=== PATIENT | female | born 2000 | race Caucasian/White ===

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

== ENCOUNTER 2020-06-25 15:12 | Emergency (ER) | payer OTHER, SELFPAY ==
[~2020-06-25] VITALS: Ht 175.3 cm; Wt 77.1 kg
[2020-06-25 15:25] VITALS: BP 116/68
--- NOTE | 2020-06-25 15:45 | NUR ---
C/O GRIFFIN,SUBJECTIVE FEVER, RUNNY NOSE,SORE THROAT, LOSS OF TASTE/SMELL X 2 DAYS. PMH: DENIES
--- NOTE | 2020-06-25 16:30 | NUR ---
covid swab done.
[2020-06-25 16:40] VITALS: BP 116/68
== END 2020-06-25 16:43 | disposition home or self-care (01) ==
LOC: MED 15:12
DX: R43.8 Other disturbances of smell and taste (principal); Z20.828 Contact with and (suspected) exposure to other viral communicable diseases
CPT/HCPCS: 99283; U0003

== ENCOUNTER 2020-11-15 01:00 | Emergency (ER) | payer OTHER, SELFPAY ==
[~2020-11-15] VITALS: Ht 175.3 cm; Wt 76.4 kg
[2020-11-15 01:04] VITALS: BP 142/69
[2020-11-15 01:29] LABS: APPEARANCE,URINE CLOUDY (CLEAR); BILIRUBIN,URINE NEGATIVE (NEGATIVE); BLOOD, URINE 3+ (NEGATIVE); COLOR,URINE RED (YELLOW); LEUKOCYTE ESTERASE ,URINE NEGATIVE (NEGATIVE); NITRITE, URINE NEGATIVE (NEGATIVE); UGLUCOSE NEGATIVE (NEGATIVE)
[2020-11-15 01:33] LABS: RBC,URINE TOO NUMEROUS TO COUN /HPF (0-5)
[2020-11-15 01:34] LABS: WBC,URINE 0-5 /HPF (0-5)
[2020-11-15] MEDS ORDERED: KETOROLAC 30 MG/ML VIAL IM ONE (01:35)
[2020-11-15] MEDS ORDERED: ONDANSETRON 4 MG ODT PO ONE (01:35)
[2020-11-15 01:55] LABS: BASOPHILS % (AUTO) 0.4 % (0.0-2.0); EOSINOPHILS # (AUTO) 0.1 K/uL (0-0.4); EOSINOPHILS % (AUTO) 1.4 % (0.0-4.0); HEMATOCRIT 39.2 % (36-48); LYMPHOCYTES # (AUTO) 2.4 K/uL (2.5-16.5); LYMPHOCYTES % (AUTO) 25.2 % (20.5-51.1); MEAN CORPUSCULAR HEMOGLOBIN 31 pg (27-31); MEAN CORPUSCULAR HGB CONC 33 g/dL (33-37); MEAN CORPUSCULAR VOLUME 94.3 fL (80-94); MONOCYTES # (AUTO) 0.8 K/uL (0.8-1.0); NEUTROPHILS # (AUTO) 6.2 K/uL (1.8-7.7); PLATELET COUNT (AUTO) 299 K/uL (140-450); RED BLOOD CELL COUNT(AUTO) 4.16 MIL/uL (4.20-5.40); RED CELL DISTRIBUTION WIDTH 13.1 % (11.6-13.7); WHITE BLOOD COUNT (AUTO) 9.5 K/uL (4.5-11.0)
[2020-11-15 02:11] LABS: ALBUMIN 3.7 g/dL (3.4-5.0); ANION GAP 11.3 (8-16); CARBON DIOXIDE 29.5 mmol/L (21-32); CREATININE 0.8 mg/dL (0.6-1.3); POTASSIUM 3.8 mmol/L (3.5-5.1); TOTAL BILIRUBIN 0.4 mg/dL (0.0-1.0)
[2020-11-15] MEDS ORDERED: MIRABULK PO (02:53)
[2020-11-15 03:04] VITALS: BP 142/69
== END 2020-11-15 03:04 | disposition home or self-care (01) ==
LOC: MED 01:00
DX: R10.30 Lower abdominal pain, unspecified (principal); M54.5 Low back pain
CPT/HCPCS: 36415; 74176; 80053; 81001; 81025; 85025; 87086; 96372; 99284; J1885; Q0162

== ENCOUNTER 2021-02-04 23:37 | Emergency (ER) | payer OTHER ==
[~2021-02-04] VITALS: Ht 175.3 cm; Wt 73.0 kg
[~2021-02-04 23:37] MED LIST changes: +MIRABULK PO
[2021-02-04 23:54] VITALS: BP 120/61
--- NOTE | 2021-02-05 01:15 | NUR ---
CALLED PATIENT BACK WITH NO RESPONSE.
--- NOTE | 2021-02-05 01:20 | NUR ---
CALLED PATIENT BACK WITH NO RESPONSE.
--- NOTE | 2021-02-05 01:25 | NUR ---
PATIENT LEFT WITHOUT BEING SEEN BY DR. BORGES. NO FURTHER CARE PROVIDED FOR PATIENT.
== END 2021-02-05 01:15 | disposition left against medical advice (07) ==
LOC: MED 23:37
DX: S81.831D Puncture wound without foreign body, right lower leg, subsequent encounter (principal); Z53.21 Procedure and treatment not carried out due to patient leaving prior to being seen by health care provider; X58.XXXD Exposure to other specified factors, subsequent encounter

== ENCOUNTER 2021-02-05 14:34 | Emergency (ER) | payer OTHER ==
[~2021-02-05] VITALS: Ht 165.1 cm; Wt 77.6 kg
[2021-02-05 14:46] VITALS: BP 116/67
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
[2021-02-05] MEDS ORDERED: MORPHINE SULFATE 2 MG/ML SYR IVP ONE (15:20)
[2021-02-05] MEDS ORDERED: ONDANSETRON 4 MG/2 ML VIAL IVP ONE (15:20)
--- NOTE | 2021-02-05 15:40 | NUR ---
CONSENT SIGNED FOR IV CONTRAST BY PT AFTER VERBALIZED UNDERSTANDING
--- NOTE | 2021-02-05 15:45 | NUR ---
ERMD MADE AWARE OF PT URINE INDICATES AND THAT MEDICATIONS WILL BE HELD, PER ERMD OK TO HOLD CONTRAST EXAM
[2021-02-05 16:06] LABS: BASOPHILS % (AUTO) 0.4 % (0.0-2.0); EOSINOPHILS % (AUTO) 0.7 % (0.0-4.0); HEMATOCRIT 33.2 % (36-48); HEMOGLOBIN 11.4 g/dL (12.0-16.0); LYMPHOCYTES # (AUTO) 1.1 K/uL (2.5-16.5); LYMPHOCYTES % (AUTO) 26.5 % (20.5-51.1); MEAN CORPUSCULAR HEMOGLOBIN 31 pg (27-31); MEAN CORPUSCULAR HGB CONC 35 g/dL (33-37); MEAN CORPUSCULAR VOLUME 90.7 fL (80-94); MONOCYTES # (AUTO) 0.5 K/uL (0.8-1.0); MONOCYTES % (AUTO) 11.4 % (1.7-9.3); NEUTROPHILS # (AUTO) 2.6 K/uL (1.8-7.7); PLATELET COUNT (AUTO) 249 K/uL (140-450); RED BLOOD CELL COUNT(AUTO) 3.65 MIL/uL (4.20-5.40); RED CELL DISTRIBUTION WIDTH 13.9 % (11.6-13.7); WHITE BLOOD COUNT (AUTO) 4.2 K/uL (4.5-11.0)
[2021-02-05 16:31] LABS: ALBUMIN 3.9 g/dL (3.4-5.0); ANION GAP 12.2 (8-16); CARBON DIOXIDE 24.1 mmol/L (21-32); CREATININE 0.6 mg/dL (0.6-1.3); POTASSIUM 3.3 mmol/L (3.5-5.1); TOTAL BILIRUBIN 0.4 mg/dL (0.0-1.0)
--- NOTE | 2021-02-05 17:04 | NUR ---
PT ALERT AND AWAKE, BREATHING EVEN AND UNLABORED. NO DISTRESS NOTED. ALL NEEDS MET AT THIS TIME WILL CONTINUE TO MONITOR
[2021-02-05] MEDS ORDERED: ACETAMINOPHEN EXTRA STRENGTH 500 MG TAB PO ONE (17:10)
--- NOTE | 2021-02-05 17:17 | NUR ---
US AT BEDSIDE
[2021-02-05 17:26] LABS: APPEARANCE,URINE CLEAR (CLEAR); BLOOD, URINE NEGATIVE (NEGATIVE); COLOR,URINE AMBER (YELLOW); UGLUCOSE NEGATIVE (NEGATIVE)
[2021-02-05 17:27] LABS: BILIRUBIN,URINE NEGATIVE (NEGATIVE); LEUKOCYTE ESTERASE ,URINE NEGATIVE (NEGATIVE); NITRITE, URINE NEGATIVE (NEGATIVE)
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
[2021-02-05 19:01] VITALS: BP 121/65
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
== END 2021-02-05 18:55 | disposition home or self-care (01) ==
LOC: MED 14:34
DX: O9A.211 Injury, poisoning and certain other consequences of external causes complicating pregnancy, first trimester (principal); S81.831A Puncture wound without foreign body, right lower leg, initial encounter; F12.90 Cannabis use, unspecified, uncomplicated; Z3A.01 Less than 8 weeks gestation of pregnancy; Z79.899 Other long term (current) drug therapy; W32.0XXA Accidental handgun discharge, initial encounter; Y93.89 Activity, other specified; Y92.810 Car as the place of occurrence of the external cause; Y99.8 Other external cause status
CPT/HCPCS: 36415; 76801; 80053; 81003; 81025; 84702; 85025; 99284; J2270; J2405

== ENCOUNTER 2021-05-30 23:05 | Observation (INO) | payer OTHER, SELFPAY ==
[~2021-05-30] VITALS: Ht 177.8 cm; Wt 77.1 kg
[2021-05-31 01:07] VITALS: BP 102/54
== END 2021-05-31 00:45 | disposition home or self-care (01) ==
LOC: MFCC 23:05
PROVIDERS: ADMIT Obstetrics & Gynecology; ATTEND Obstetrics & Gynecology
DX: O26.892 Other specified pregnancy related conditions, second trimester (principal); R10.30 Lower abdominal pain, unspecified; Z3A.23 23 weeks gestation of pregnancy
CPT/HCPCS: 59025; G0378

== ENCOUNTER 2021-12-23 07:26 | Emergency (ER) | payer OTHER ==
[~2021-12-23] VITALS: Ht 177.8 cm; Wt 86.2 kg
[2021-12-23 07:37] VITALS: BP 122/80
--- NOTE | 2021-12-23 08:32 | NUR ---
21 y/o female, pt presents to ed with c/o right heel pain, pt states a "bubble of fluid" formed yesterday and she had popped it last night and this morning. pt states she is having pain and sensitivity in area, area appears white and no mass is formed at site. site appears moist. denies nausea, vomiting, diarrhea. skin is pink/warm/dry. a&o x4 with even and steady gait. pt denies any fever, cp, sob, or cough at this time. pt states pain is 3/10 at this time. vss. patient positioned for comfort. hob elevated. bed down. ermd made aware of pt. pmh: denies nka med: dneies
[2021-12-23] MEDS ORDERED: BACI-105 TP (08:34)
[2021-12-23 08:53] VITALS: BP 122/80
--- NOTE | 2021-12-23 09:07 | NUR ---
Patient discharged with v/s stable. Written and verbal after care instructions given and explained. Patient alert, oriented and verbalized understanding of instructions. Ambulatory with steady gait. All questions addressed prior to discharge. ID band removed. Patient advised to follow up with PMD. Rx of bacitracin (sent) given. Patient educated on indication of medication including possible reaction and side effects. Opportunity to ask questions provided and answered. work note copy given
== END 2021-12-23 09:07 | disposition home or self-care (01) ==
LOC: MED 07:26
DX: S90.822A Blister (nonthermal), left foot, initial encounter (principal); Z79.2 Long term (current) use of antibiotics; X58.XXXA Exposure to other specified factors, initial encounter; Y92.89 Other specified places as the place of occurrence of the external cause; Y93.89 Activity, other specified; Y99.8 Other external cause status
CPT/HCPCS: 99282

== ENCOUNTER 2022-09-06 04:07 | Emergency (ER) | payer OTHER ==
[~2022-09-06] VITALS: Ht 177.8 cm; Wt 83.9 kg
[~2022-09-06 04:07] MED LIST changes: +BACI-105 TP; -DIPH25SG5 PO; -MIRABULK PO
[2022-09-06 04:14] VITALS: BP 138/74
--- NOTE | 2022-09-06 04:20 | NUR ---
TO LOBBY FOLLOWING TRIAGE
[2022-09-06] MEDS ORDERED: IBUPROFEN 600 MG TAB PO ONE (05:25)
[2022-09-06] MEDS ORDERED: HYDROcodone/APAP 5/325 MG 1 TAB TAB PO ONE (06:25)
[2022-09-06] MEDS ORDERED: ACET-8905 PO (06:38)
[2022-09-06] MEDS ORDERED: AMOX1TAB8 PO (06:38)
[2022-09-06] MEDS ORDERED: IBUP-2213 PO (06:38)
[2022-09-06 06:52] VITALS: BP 131/85
== END 2022-09-06 06:52 | disposition home or self-care (01) ==
LOC: MED 04:07
DX: K02.9 Dental caries, unspecified (principal)
CPT/HCPCS: 99283

== ENCOUNTER 2024-01-02 11:54 | Emergency (ER) | payer OTHER ==
[~2024-01-02] VITALS: Ht 175.3 cm; Wt 83.9 kg
[~2024-01-02 11:54] MED LIST changes: +ACET-8905 PO; +AMOX1TAB8 PO; +IBUP-2213 PO
[2024-01-02 11:57] VITALS: BP 105/57; PULSE 69; RESP 18; TEMP 98.3; O2SAT 99
[2024-01-02 12:10] VITALS: O2SAT 99
[2024-01-02] MEDS: NACL 0.9% 1,000 ML IV ONE (12:31)
[2024-01-02] MEDS: ONDANSETRON 4 MG/2 ML VIAL IVP ONE (12:37)
[2024-01-02 13:13] LABS: BASOPHILS % (AUTO) 0.4 % (0.0-2.0); EOSINOPHILS % (AUTO) 0.6 % (0.0-4.0); HEMATOCRIT 35.6 % (36-48); HEMOGLOBIN 11.6 g/dL (12.0-16.0); LYMPHOCYTES # (AUTO) 1.7 K/uL (2.5-16.5); LYMPHOCYTES % (AUTO) 28.1 % (20.5-51.1); MEAN CORPUSCULAR HEMOGLOBIN 27 pg (27-31); MEAN CORPUSCULAR HGB CONC 33 g/dL (33-37); MEAN CORPUSCULAR VOLUME 82.4 fL (80-94); MONOCYTES # (AUTO) 0.6 K/uL (0.8-1.0); MONOCYTES % (AUTO) 10.2 % (1.7-9.3); NEUTROPHILS # (AUTO) 3.7 K/uL (1.8-7.7); NEUTROPHILS % (AUTO) 60.7 % (42.2-75.2); PLATELET COUNT (AUTO) 296 K/uL (140-450); RED BLOOD CELL COUNT(AUTO) 4.33 MIL/uL (4.20-5.40); RED CELL DISTRIBUTION WIDTH 16.9 % (11.6-13.7); WHITE BLOOD COUNT (AUTO) 6.1 K/uL (4.8-10.8)
[2024-01-02 13:41] LABS: APPEARANCE,URINE CLEAR (CLEAR); BILIRUBIN,URINE NEGATIVE (NEGATIVE); BLOOD, URINE NEGATIVE (NEGATIVE); COLOR,URINE YELLOW (YELLOW); LEUKOCYTE ESTERASE ,URINE 2+ (NEGATIVE); NITRITE, URINE NEGATIVE (NEGATIVE); PH,URINE 6.5 (5.0-9.0); PROTEIN,URINE NEGATIVE (NEGATIVE); UGLUCOSE NEGATIVE (NEGATIVE); UROBILINOGEN,URINE 0.2 EU/dL (0.2 - 1)
[2024-01-02 13:43] LABS: ALBUMIN 3.7 g/dL (3.4-5.0); BILIRUBIN,DIRECT 0.1 mg/dL (0.0-0.3); TOTAL BILIRUBIN 0.3 mg/dL (0.0-1.0); TOTAL PROTEIN, SERUM 7.2 g/dL (6.4-8.2)
[2024-01-02 13:52] LABS: CALCIUM 8.6 mg/dL (8.5-10.1); CARBON DIOXIDE 26.1 mmol/L (21-32); CREATININE 0.7 mg/dL (0.6-1.3); POTASSIUM 4.1 mmol/L (3.5-5.1)
[2024-01-02 13:52] LABS: BACTERIA,URINE 10-30 (MOD) /HPF (None Seen); RBC,URINE 0-5 /HPF (0-5); SQUAMOUS EPITHELIAL CELL,UR >10 (MANY) /LPF (0-3 (FEW)); WBC,URINE 0-5 /HPF (0-5)
[2024-01-02 13:59] VITALS: BP 107/52; PULSE 63; RESP 18; TEMP 98.3; O2SAT 98
[2024-01-02] MEDS ORDERED: ONDA-188 SL (14:12)
[2024-01-02] MEDS ORDERED: CEPH-588 PO (14:12)
== END 2024-01-02 14:51 | disposition home or self-care (01) ==
LOC: MED 11:54
DX: N39.0 Urinary tract infection, site not specified (principal); A08.4 Viral intestinal infection, unspecified; Z79.1 Long term (current) use of non-steroidal anti-inflammatories (NSAID); Z79.2 Long term (current) use of antibiotics; Z79.899 Other long term (current) drug therapy
CPT/HCPCS: 36415; 80048; 80076; 81001; 81025; 83690; 84703; 85025; 87086; 96361; 96374; 99283; J2405; J7030

== ENCOUNTER 2024-02-20 12:52 | Emergency (ER) | payer OTHER ==
[~2024-02-20] VITALS: Ht 175.3 cm; Wt 81.6 kg
[~2024-02-20 12:52] MED LIST changes: +CEPH-588 PO; +ONDA-188 SL
[2024-02-20 13:06] VITALS: BP 104/65; PULSE 69; RESP 14; TEMP 97.7; O2SAT 100
[2024-02-20] MEDS ORDERED: ALBU0.0912 IH (13:38)
[2024-02-20] MEDS ORDERED: NIRM1TAB9 PO (13:38)
[2024-02-20] MEDS ORDERED: TAM75 PO (13:38)
[2024-02-20] MEDS ORDERED: BPM/473S94 PO (13:38)
[2024-02-20] MEDS ORDERED: IBUP-2213 PO (13:38)
[2024-02-20 13:44] VITALS: BP 104/65; PULSE 69; RESP 14; TEMP 97.7; O2SAT 100
[2024-02-20 13:57] LABS: FLU A ANTIGEN NEGATIVE (NEGATIVE); FLU B ANTIGEN NEGATIVE (NEGATIVE)
== END 2024-02-20 13:48 | disposition home or self-care (01) ==
LOC: MED 12:52
DX: U07.1 COVID-19 (principal); Z79.899 Other long term (current) drug therapy
CPT/HCPCS: 99283